=== PATIENT | female | born 1995 ===

== ENCOUNTER 2018-12-04 12:31 | Emergency (ER) | payer OTHER ==
[~2018-12-04] VITALS: Ht 160 cm; Wt 70.3 kg
[2018-12-04] MEDS ORDERED: BENADRYL25 MG PO (15:53)
[2018-12-04] MEDS ORDERED: Prednisone20 MG PO (15:53)
[2018-12-04] MEDS ORDERED: Pepcid40 MG PO (15:53)
== END 2018-12-04 16:12 | disposition home or self-care (01) ==
LOC: ER 12:31
DX: T78.2XXA Anaphylactic shock, unspecified, initial encounter (principal)
CPT/HCPCS: 96361; 96372-59; 96374; 96375; 99284-25; J0171; J1100; J1200; J7030